=== PATIENT | female | born 1950 | race Caucasian/White ===

== ENCOUNTER 2021-05-09 02:52 | Emergency (ER) | payer MEDICARE | END 2021-05-09 05:50 | disposition home or self-care (01) | LOC: ED 02:52 | DX: S00.93XA Contusion of unspecified part of head, initial encounter (principal); G12.21 Amyotrophic lateral sclerosis; R64 Cachexia; W18.30XA Fall on same level, unspecified, initial encounter; Y92.009 Unspecified place in unspecified non-institutional (private) residence as the place of occurrence of the external cause; Z74.01 Bed confinement status ==